=== PATIENT | male | born 1980 | race Caucasian/White ===

== ENCOUNTER 2017-06-28 05:46 | Emergency (ER) | payer OTHER ==
[~2017-06-28] VITALS: Ht 182.9 cm; Wt 102.1 kg
[~2017-06-28 05:46] MED LIST: KETO10TA2 PO
== END 2017-06-28 12:32 | disposition home or self-care (01) ==
LOC: ER 05:46
DX: J02.9 Acute pharyngitis, unspecified (principal); I10 Essential (primary) hypertension

== ENCOUNTER 2024-09-19 03:44 | Emergency (ER) | payer OTHER ==
[~2024-09-19] VITALS: Ht 182.9 cm; Wt 108.9 kg
[2024-09-19] MEDS ORDERED: ZESTRIL40 M1 PO (04:18)
[2024-09-19] MEDS ORDERED: TOPROL XL100 M1 PO (04:18)
[2024-09-19] MEDS ORDERED: NORVASC5 MG PO (04:19)
[2024-09-19] MEDS ORDERED: LIPITOR40 MG PO (04:19)
[2024-09-19] MEDS ORDERED: HYDRODIURIL12.5 MG PO (04:19)
[2024-09-19] MEDS ORDERED: CEFTRIAXONE SODIUM 2,000 MG VIAL ONE (04:27)
[2024-09-19] MEDS ORDERED: CLONIDINE HCL 0.1 MG TABLET PO ONE (04:28)
[2024-09-19] MEDS ORDERED: cloNIDine HCL 0.2 MG TABLET PO ONE (04:30)
[2024-09-19] MEDS ORDERED: CEFTRIAXONE SODIUM 2,000 MG VIAL IV ONE (04:30)
[2024-09-19] MEDS ORDERED: MONODOX100 MG PO (06:06)
[2024-09-19] MEDS ORDERED: DOXYCYCLINE HY100 MG PO (06:07)
[2024-09-19 08:00] LABS: PH,URINE 6.5 (5.0-8.0); URINE APPEARANCE Clear; URINE BILIRRUBIN Negative (NEGATIVE); URINE BLOOD Negative; URINE COLOR Yellow; URINE GLUCOSE Negative (NEGATIVE); URINE KETONE Negative (NEGATIVE); URINE LEUKOCYTE Moderate; URINE NITRATE Negative; URINE PROTEIN Trace (NEGATIVE)
[2024-09-19 08:02] LABS: URINE BACTERIA 41.6 uL (0.0-1933); URINE RBC 16.2 uL (0.0-20.8); URINE WBC 972.3 uL (0.0-23.2)
== END 2024-09-19 06:36 | disposition home or self-care (01) ==
LOC: ER 03:45
PROVIDERS: General Practice
DX: N39.0 Urinary tract infection, site not specified (principal); I10 Essential (primary) hypertension